=== PATIENT | male | born 1945 | race Caucasian/White ===

== ENCOUNTER 2021-04-19 11:01 | Day surgery (SDC) | payer MEDICARE ==
[2021-04-19] MEDS ORDERED: Sodium Bicarbonate 2.5 MEQ/5 ML VIAL ONE (12:35)
[2021-04-19] MEDS ORDERED: Lidocaine 1% PF 5 ML VIAL ONE (12:35)
[2021-04-19 12:40] VITALS: BP 130/72; TEMP 98.6
== END 2021-04-19 13:50 | disposition home or self-care (01) ==
LOC: CSHULT 11:01
PROVIDERS: ATTEND Student in an Organized Health Care Education/Training Program
DX: E04.1 Nontoxic single thyroid nodule (principal); E03.9 Hypothyroidism, unspecified; I13.0 Hypertensive heart and chronic kidney disease with heart failure and stage 1 through stage 4 chronic kidney disease, or unspecified chronic kidney disease; I50.32 Chronic diastolic (congestive) heart failure; N18.4 Chronic kidney disease, stage 4 (severe); E78.00 Pure hypercholesterolemia, unspecified; Z79.899 Other long term (current) drug therapy; Z79.02 Long term (current) use of antithrombotics/antiplatelets; Z79.01 Long term (current) use of anticoagulants; E04.9 Nontoxic goiter, unspecified; I48.19 Other persistent atrial fibrillation
CPT/HCPCS: 10005; 88173